=== PATIENT | male | born 1955 | race Asian ===

== ENCOUNTER 2022-08-15 11:07 | Outpatient (CLI) | payer MEDICARE, OTHER ==
[2022-08-15 18:34] LABS: ALBUMIN/GLOBULIN RATIO 1.1 (1.0-2.2); ALKALINE PHOSPHATASE 50 IU/L (42-121); ALT ALANINE AMINOTRANSFERASE 25 IU/L (10-60); AST ASPARTATE AMINOTRANSFERASE 22 IU/L (10-42); BILIRUBIN,TOTAL 0.9 mg/dL (0.2-1.0); BUN - BLOOD UREA NITROGEN 11 mg/dL (6-20); CARBON DIOXIDE - CO2 29 mmol/L (21-32); CHLORIDE 103 mmol/L (101-111); CHOL/HDL RATIO 4.9 (<5.0); CHOLESTEROL 217 mg/dL; CREATININE 0.8 mg/dL (0.6-1.2); GFR - MDRD 97 (>89); GLUCOSE 104 mg/dL (70-100); HDL CHOLESTEROL 44 mg/dL; LDL CHOLESTEROL,CALCULATED 143 mg/dL; LDL/HDL RATIO 3.3 (<3.6); POTASSIUM 3.8 mmol/L (3.5-5.0); SODIUM 139 mmol/L (135-145); TOTAL PROTEIN 7.5 g/dL (6.7-8.2); TRIGLYCERIDES 152 mg/dL; VLDL CHOLESTEROL 30 mg/dL
[2022-08-15 19:12] LABS: THYROID STIMULATING HORMONE 2.27 uIU/mL (0.34-5.60)
== END 2022-08-15 11:08 | disposition home or self-care (01) ==
LOC: LAB.N 11:07
PROVIDERS: ATTEND Nurse Practitioner
DX: I10 Essential (primary) hypertension (principal); R68.82 Decreased libido; R53.83 Other fatigue; Z13.220 Encounter for screening for lipoid disorders
CPT/HCPCS: 36415; 80053; 80061; 83721; 84403; 84443

== ENCOUNTER 2022-08-17 10:20 | Outpatient (CLI) | payer MEDICARE, OTHER ==
[2022-08-17 18:00] LABS: BASOPHILS % (AUTO) 0.7 %; EOSINOPHILS # (AUTO) 0.1 10^3/uL (0.0-0.7); EOSINOPHILS % (AUTO) 2.6 %; HCT - HEMATOCRIT 46.1 % (42.0-52.0); HGB - HEMOGLOBIN 15.1 g/dL (14.0-18.0); LYMPHOCYTES # (AUTO) 2.2 10^3/uL (1.5-3.5); LYMPHOCYTES % (AUTO) 40.1 %; MEAN CORPUSCULAR HEMOGLOBIN 31.4 pg (27.0-31.0); MEAN CORPUSCULAR HGB CONC 32.8 g/dL (32.0-36.0); MEAN CORPUSCULAR VOLUME 95.8 fL (80.0-94.0); MEAN PLATELET VOLUME 10.1 fL (7.4-11.4); MONOCYTES # (AUTO) 0.3 10^3/uL (0.0-1.0); MONOCYTES % (AUTO) 5.7 %; NEUTROPHILS # (AUTO) 2.7 10^3/uL (1.5-6.6); NEUTROPHILS % (AUTO) 50.7 %; PLT - PLATELET COUNT 203 10^3/uL (130-450); RED BLOOD COUNT 4.81 10^6/uL (4.70-6.10); RED CELL DISTRIBUTION WIDTH 13.2 % (12.0-15.0); WHITE BLOOD COUNT 5.4 x10^3/uL (4.8-10.8)
== END 2022-08-17 10:21 | disposition home or self-care (01) ==
LOC: LAB.N 10:20
PROVIDERS: ATTEND Nurse Practitioner
DX: I10 Essential (primary) hypertension (principal); Z12.5 Encounter for screening for malignant neoplasm of prostate
CPT/HCPCS: 36415; 85025; G0103; 84153

== ENCOUNTER 2022-11-02 12:19 | Outpatient (CLI) | payer MEDICARE, OTHER | END 2022-11-02 12:20 | disposition home or self-care (01) | LOC: SC 12:19 | PROVIDERS: ATTEND Internal Medicine Pulmonary Disease | DX: G47.33 Obstructive sleep apnea (adult) (pediatric) (principal); R09.02 Hypoxemia | CPT/HCPCS: G0399 ×2; 95806 ==

== ENCOUNTER 2023-01-01 12:57 | Outpatient (CLI) | payer MEDICARE, OTHER ==
[2023-01-01 19:26] VITALS: BP 130/70
--- NOTE | 2023-01-01 19:26 | SLEEP CARE CONSULTATION ---
Information from patient questionnaire entered by Pio Khan. I have reviewed and concur with the information entered by Pio Khan. This document represents the service I personally performed and the decisions made by me, Byron Cosby MD, [facility]. History of Present Illness Service Date and Time: 01/01/2023 1257 Initial [place] Sleepiness Scale score: 4 Current [place] Sleepiness Scale score: 4 (01/01/23) Additional HPI information: Mr. Concepcion returned with his for follow up of the home sleep apnea test (HSAT) he had on 11/02/23. The polysomnography showed mild obstructive sleep apnea-hypopnea, with an AHI of 14.5/hr and huy SaO2 of 86%. During the study, the patient had 82 apneas (82 obstructive, 0 central, 0 mixed) and 3 hypopneas. The longest episode lasted 51.0 seconds. The respiratory events occurred more fr equently during non-supine sleep (supine AHI was 4.7 and non-supine, 20.09). Hypoxemia was mild, with the lowest oxygen saturation of 86 % and 1.3 minutes with SaO2 under 90%. Baseline oxygen saturation was normal (Average oxygen saturation was 95%). The patient was informed of these findings. I explained to him the pathophysiology behind obstructive sleep apnea. We then spent quite a bit of time discussing different treatment options. For mild obstructive sleep apnea, surgery and oral appliance are alternatives to nasal CPAP therapy but in moderate or severe cases, nasal CPAP is the most effective and reliable treatment. Weight loss in an obese individual is strongly recommended. After some discussion, he opted to go with the nasal CPAP therapy. I explained to him how CPAP machine works and what to expect when using the machine. He is encouraged to use CPAP every night especially in the first 2 to 3 nights in order to get used to it. He should call his CPAP supplier or me to discuss any mechanical problem that may occur. If he snores or feels like he is not getting enough air from the machine, he should notify me and I will increase the pressure. Sleep Study - Results Type of Sleep Study: Home sleep study (COMPLETED 11/02/22) Prior sleep studies: No Allergies and Home Medications Drug allergies reviewed: Yes Home medication list reviewed: Yes Allergy and home medication list: Allergies aspirin Allergy (Verified 10/09/22 13:34) iodine Allergy (Verified 10/09/22 13:34) Physical Exam Vital signs obtained and entered by: PIO Haro MA Blood Pressure: 130/70 (LEFT ARM) Cuff size: regular Heart Rate: 91 O2 Saturation: 97 Height: 5 ft 3 in Weight: 168 lb 6.4 oz Body Mass Index: 29.8 BMI Classification: Overweight Impression and Plan IMPRESSION: 1. Obstructive Sleep Apnea-Hypopnea Syndrome, mild, associated with mild hypoxemia. With history of hypertension, positive airway pressure therapy is indicated. As mentioned above, the patient will be started on an autoCPAP set at 5 - 15 cmH2O. Depending on his response and compliance he may be brought back for an overnight CPAP titration study. PLAN: 1. Prescription made for an autoCPAP, heated humidifier, and related supplies through [employer].. 2. Attempt to lose weight and avoid alcohol consumption near bedtime. 3. Return for follow up after one month of using the CPAP. Counseling Topics: Weight control Prescriptions: Auto CPAP Follow up with Sleep Care in: 1-2 months Visit Type: In Office Other Participants: Spouse/Significant Other Time Spent with Patient (minutes): 20 Provider Statement: I spent 100% of the Face to Face Visit with the patient with greater than 50% spent counseling the patient and coordination of care.
== END 2023-01-01 12:58 | disposition home or self-care (01) ==
LOC: SC 12:57
PROVIDERS: ATTEND Internal Medicine Pulmonary Disease
DX: G47.33 Obstructive sleep apnea (adult) (pediatric) (principal); R09.02 Hypoxemia
CPT/HCPCS: 99213; G0463; 99212

== ENCOUNTER 2023-02-26 14:03 | Outpatient (CLI) | payer MEDICARE, OTHER ==
[2023-02-26 18:08] VITALS: BP 130/78
--- NOTE | 2023-02-26 18:08 | SLEEP CARE CONSULTATION ---
Information from patient questionnaire entered by Pio Khan. I have reviewed and concur with the information entered by Pio Khan. This document represents the service I personally performed and the decisions made by me, Byron Cosby MD, [facility]. History of Present Illness Service Date and Time: 02/26/2023 1403 Reason for follow up: first compliance Equipment type: CPAP (RESMED) Prior sleep studies: No Type of Sleep Study: Home sleep study (COMPLETED 11/02/22) HPI additional information: Mr. Concepcion was diagnosed to have mild obstructive sleep apnea-hypopnea syndrome and returns today with his for follow up of CPAP therapy. The patient purchased the device from [employer]. and was fitted with a nasal mask. He uses the device nightly and all through the night. The compliance report shows that he uses the device 33 nights out of the past 40 nights, averaging 5,7 hours a night. He complains of no particular problem with the device such as soreness on the face, dry nose, epistaxis, nasal congestion or headache. He thinks that the pressure of 5 - 15 cmH2O is comfortable. On the CPAP therapy he notices improvement in his sleep quality, and that he wakes up feeling fresher in the morning and more awake/alert during the day. His notices no snore at all. [place] Sleepiness Scale score is 5. The average re sidual AHI is 2,8; and average air leak is 0 L/minute. The 90th percentile pressure is 10.6 cmH2O. Sleep Study - Results Type of Sleep Study: Home sleep study (COMPLETED 11/02/22) Prior sleep studies: No CPAP Compliance Data - Data Reviewed with Patient Average duration of nightly device use: 6HRS 59MINS Compliance rate %: 83 (01/24/23-02/22/23) Current pressure setting (cmH2O): 5-15 Average residual AHI: 1.8 Subjective Initial [place] Sleepiness Scale score: 4 Current [place] Sleepiness Scale score: 5 (02/26/23) Allergies and Home Medications Drug allergies reviewed: Yes Home medication list reviewed: Yes Allergy and home medication list: Allergies aspirin Allergy (Verified 02/23/23 15:22) iodine Allergy (Verified 02/23/23 15:22) Review of Systems Review of systems same as previous: Yes Physical Exam Vital signs obtained and entered by: PIO Haro MA Blood Pressure: 130/78 (LEFT ARM ) Cuff size: regular Heart Rate: 81 O2 Saturation: 98 Height: 5 ft 3 in Weight: 169 lb Body Mass Index: 29.9 BMI Classification: Overweight Impression and Plan IMPRESSION: 1. Obstructive Sleep Apnea-Hypopnea Syndrome, mild (AHI was 14.5), with the patient doing well on nasal CPAP therapy. He has good compliance and significant clinical benefits. The current pressure appears effective and comfortable. Overall, he is very satisfied with treatment and plans to continue with it long-term. No adjustment is necessary today. PLAN: 1. Continue with autoCPAP s set at 5 - 15 cm H2O. 2. Try to lose weight. 3. Adjust humidity and tube temperature to avoid condensation in the hose. 4. Return in one year for follow up or earlier if there is any problem with the treatment. Follow up with Sleep Care in: 1 year Visit Type: In Office Time Spent with Patient (minutes): 15 Provider Statement: I spent 100% of the Face to Face Visit with the patient with greater than 50% spent counseling the patient and coordination of care.
== END 2023-02-26 14:04 | disposition home or self-care (01) ==
LOC: SC 14:03
PROVIDERS: ATTEND Internal Medicine Pulmonary Disease
DX: G47.33 Obstructive sleep apnea (adult) (pediatric) (principal); E66.3 Overweight; Z68.29 Body mass index [BMI] 29.0-29.9, adult
CPT/HCPCS: 99212; G0463